=== PATIENT | female | born 1980 | race Caucasian/White ===

== ENCOUNTER → 2019-06-21 | Outpatient (CLI) | payer OTHER ==
--- NOTE | 2019-06-21 10:06 | KCIC ---
EXAM: Chest, 2 views. HISTORY: Rheumatoid arthritis. COMPARISON: None. FINDINGS: 2 views of the chest are obtained. There is no infiltrate, pleural effusion or pneumothorax. The heart is normal in size. IMPRESSION: No acute pulmonary finding. Electronically signed by: Dotty Restrepo MD (06/21/2019 10:04 AM) [facility]
== END | disposition home or self-care (01) ==
LOC: KCIC 09:33
PROVIDERS: ATTEND Nurse Practitioner
DX: M06.9 Rheumatoid arthritis, unspecified (principal)
CPT/HCPCS: 71046

== ENCOUNTER → 2019-11-22 | Outpatient (CLI) | payer OTHER ==
--- NOTE | 2019-11-22 18:42 | KCIC ---
Bilateral digital screening mammograms: Reason for examination: Routine baseline screening. Interpretation was made with the benefit of CAD. The skin and nipples show no abnormalities. No abnormal axillary lymph nodes are seen. The breast parenchyma is heterogeneously dense. (Breast density: Category C.) There is a small nodular density seen centrally in the right breast on cc view approximately 4.5 cm posterior to the nipple and measuring approximately 6 mm in size. This probably lies at the 12:00 position. There is also a small irregularly marginated parenchymal density medially in the right breast on cc view approximately 6.5 cm from the nipple and measuring approximately 6.5 mm in size. Coned compression views and ultrasound. There are no other dominant masses, suspicious calcifications or architectural distortion. Impression: 6 mm nodule located 4.5 cm posterior to the nipple in the right breast centrally on cc view. This probably is located at the 12:00 position. Nodular density medially in the in the right breast on cc view approximately 6.5 cm from the nipple and measuring 6.5 mm in size. Recommend further evaluation with additional cone compression views and ultrasound. Your patient's mammogram demonstrates that she has dense breast tissue (breast density category C or D), which could hide abnormalities, and if she has other risk factors for breast cancer that have been identified, she might benefit from supplemental screening tests that may be suggested by you as her ordering physician. Dense breast tissue, in and of itself, is a relatively common condition. Therefore, this information is not provided to cause undue concern, but rather to raise your awareness and to promote discussion with your patient regarding the presence of other risk factors, in addition to dense breast tissue. Your patient's mammography results will be sent to her. BI-RAD Category 0: Incomplete. Needs additional imaging evaluation. "Our facility is accredited by the [employer] Mammography [employer]." This patient's information has been entered into a reminder system for the patient to be notified with the results of her examination and a target date for the next mammogram. Electronically signed by: Anna Snyder MD (11/22/2019 6:39 PM) [facility]
== END | disposition home or self-care (01) ==
LOC: KCIC MAMMO 10:43
PROVIDERS: ATTEND Nurse Practitioner
DX: Z12.31 Encounter for screening mammogram for malignant neoplasm of breast (principal); N63.10 Unspecified lump in the right breast, unspecified quadrant; N64.89 Other specified disorders of breast
CPT/HCPCS: 77067

== ENCOUNTER → 2019-12-01 | Outpatient (CLI) | payer OTHER ==
--- NOTE | 2019-12-01 11:12 | KCIC ---
Right digital diagnostic mammogram and right breast ultrasound Reason for examination: Right upper inner breast nodular asymmetries Comparison is made to previous study dated mammogram November 22, 2019 Routine CC and and ML spot compression digital views obtained. Interpretation was made with the benefit of CAD. Mammogram: The skin and nipples show no abnormalities. No abnormal axillary lymph nodes are seen. The breast parenchyma is heterogeneously dense. (Breast density: Category C.) There are no suspicious masses, suspicious calcifications or architectural distortion. There is a persistent nodular asymmetry of the right upper inner breast 2:00 position mid depth. ULTRASOUND: At the right breast 2:00 position 4.5 cm from the nipple there is a parallel hypoechoic lobular nonshadowing mass with some lobular outward projections which measures 0.8 x 0.3 cm concordant with the mammographic finding, this is of mild suspicion. Impression: Mildly suspicious mass of the right upper inner breast as described above. Ultrasound-guided right breast core needle biopsy is advised. Results were called to HINA Meredith's medical sonographer at 11:00 AM December 01, 2019. ?Your patient's mammogram demonstrates that she has dense breast tissue (breast density category C or D), which could hide abnormalities, and if she has other risk factors for breast cancer that have been identified, she might benefit from supplemental screening tests that may be suggested by you as her ordering physician. Dense breast tissue, in and of itself, is a relatively common condition. Therefore, this information is not provided to cause undue concern, but rather to raise your awareness and to promote discussion with your patient regarding the presence of other risk factors, in addition to dense breast tissue. Your patient's mammography results will be sent to her. BI-RAD Category 4: Suspicious. "Our facility is accredited by the [employer] Mammography Program." This patient's information has been entered into a reminder system for the patient to be notified with the results of her examination and a target date for the next mammogram. Electronically signed by: Nixon Villa MD (12/01/2019 11:09 AM) [facility]
== END | disposition home or self-care (01) ==
LOC: KCIC MAMMO 09:52
PROVIDERS: ATTEND Nurse Practitioner
DX: N63.12 Unspecified lump in the right breast, upper inner quadrant (principal)
CPT/HCPCS: 76641; 77065

== ENCOUNTER → 2019-12-15 | Outpatient (CLI) | payer OTHER ==
--- NOTE | 2019-12-15 10:02 | RAD ---
EXAM: 1. ULTRASOUND-GUIDED CORE BIOPSY RIGHT BREAST WITH CLIP PLACEMENT. 2. POSTCLIP DIAGNOSTIC RIGHT MAMMOGRAPHY. HISTORY: Right breast mass. Ultrasound-guided biopsy is requested. FINDINGS: The procedure along with its risks and benefits were explained to the patient. She agreed to proceed. A timeout procedure was performed. Sonographic evaluation of the right breast redemonstrates the lesion of concern. The hypoechoic bilobed mass at the right 2:00 position 4.6 cm from the nipple was adequately visualized for biopsy. The overlying skin was sterilely prepped and infiltrated with 1% lidocaine for local anesthesia. Under ultrasound guidance, 3 core needle specimens of the target lesion were obtained using a 14-gauge biopsy device. These were submitted in formalin. A postbiopsy clip was placed under ultrasound guidance. Pressure was held to hemostasis. There were no immediate complications. Full-field digital mammographic views of the right breast were obtained in CC and MLO projections and interpreted on a dedicated workstation. They demonstrate the clip in correspondence with the target lesion. IMPRESSION: 1. Successful ultrasound-guided right breast biopsy with clip placement. 2. The postbiopsy clip corresponds with the target lesion. Electronically signed by: Jose Ingram MD (12/15/2019 9:59 AM) [facility]
--- NOTE | 2019-12-16 17:07 | PATHOLOGY ---
[facility] Accession Number: [id number] . 01 Material submitted: . breast - RIGHT BREAST MASS, 2:00, 4.5CMFN. Modifiers: right, 2:00 . 01 Clinical history: . Right breast mass 2:00 4.5 cm from nipple; 0.8 cm . 02 Diagnosis: Breast tissue, right breast mass 2:00 needle biopsies: - Focal stromal fibrosis and small focus of apocrine metaplasia, suggestive of fibroadenoma. (JPM:mm; 12/16/2019) [facility] 12/16/2019 1634 Local . 02 Comment: There is no evidence of malignancy. Correlate with mammographic findings. . (JPM:mml; 12/16/2019) . 02 Electronically signed: . Deshaun Gar MD, Pathologist NPI- [id number] . 01 Gross description: . The specimen is received in formalin, labeled "Valeria Toro, right breast". Received are two needle cores of fibrofatty tissue measuring 0.6 x 0.5 x 0.2 cm in aggregate dimensions. The specimen is submitted entirely in cassettes A1 and A2. The cold ischemic time is 5 minutes. The total formalin fixation time is 12 hours and 40 minutes. (CAA; 12/15/2019) [facility]/QAC 12/15/2019 1600 Local . 02 Pathologist provided ICD-10: N60.31, N60.82 . 02 CPT . 800325 Specimen Comment: A courtesy copy of this report has been sent to [phone], [phone] Specimen Comment: [id number] Specimen Comment: Report sent to Performed at: [address], [place], [place] [id number] MD Jacek Rizo MD Phone: [phone] Performed at: [address] [id number] MD Deshaun Gar MD Phone: [phone]
== END | disposition home or self-care (01) ==
LOC: US 08:36
PROVIDERS: ATTEND Nurse Practitioner
DX: N63.10 Unspecified lump in the right breast, unspecified quadrant (principal); N60.31 Fibrosclerosis of right breast
CPT/HCPCS: 19083; 77065; 88305; C1713; 19081; 76942